=== PATIENT | female | born 1980 | race African-American/Black ===

== ENCOUNTER 2017-01-06 06:11 | Observation (INO) | payer SELFPAY ==
[2017-01-06 06:58] LABS: #Lymphocytes 1.2 thou/uL (1.20-3.40); #Monocytes 0.8 thou/uL (0.11-0.59); #Neutrophils 13.1 thou/uL (1.40-6.50); %Basophils 0.2 % (0.0-1.0); %Monocytes 5.4 % (0.0-10.0); Mean Platelet Volume 6.2 fL (7.4-10.4); Red Blood Cell (RBC) Count 4.73 mill/uL (4.20-5.40); White Blood Cell (WBC) Count 15.2 thou/uL (4.8-10.8)
[2017-01-06] MEDS ORDERED: Lorazepam 2 MG/ML VIAL ONE (06:59)
[2017-01-06 07:17] LABS: ALT (SGPT) 73 U/L (8-55); AST (SGOT) 162 U/L (5-34); Alkaline Phosphatase 105 U/L (40-150); Anion Gap 25 mmol/L (10-20); BUN (Urea Nitrogen) 11 mg/dL (7.0-18.7); Bilirubin, Total 1.4 mg/dL (0.2-1.2); Calc. Creatinine Clearance 0 mL/min (70-130); Calcium 9.7 mg/dL (7.8-10.44); Carbon Dioxide 24 mmol/L (22-29); Chloride 97 mmol/L (98-107); Estimated GFR-MDRD 69; Globulin 3.6 g/dL (2.4-3.5); Protein, Total 7.9 g/dL (6.0-8.3)
[2017-01-06 07:24] LABS: Magnesium 1.4 mg/dL (1.6-2.6)
[2017-01-06 07:27] LABS: Phosphorus 1.3 mg/dL (2.3-4.7)
[2017-01-06] MEDS ORDERED: Zolpidem Tartrate 5 MG TAB PO PRN (10:24)
[2017-01-06] MEDS ORDERED: Sodium Chloride 0.65% Nasal 44 ML BOT EA NARE PRN (10:24)
[2017-01-06] MEDS ORDERED: Acetaminophen 325 MG TAB PO PRN (10:24)
[2017-01-06] MEDS ORDERED: HYDROcodone/Acetaminophen 5/325 mg Tablet PO PRN (10:24)
[2017-01-06] MEDS ORDERED: Senokot 8.6 MG TAB PO PRN (10:24)
[2017-01-06] MEDS ORDERED: Diabetic Tussin 200 MG/10 ML UDCUP PO PRN (10:24)
[2017-01-06] MEDS ORDERED: Ondansetron ODT 4 MG TAB PO PRN (10:24)
[2017-01-06] MEDS ORDERED: Eucerin (Mineral Oil/Petrolatum,White) 30 gm Jar TOP PRN (10:24)
[2017-01-06] MEDS ORDERED: Milk Of Magnesia 30 ML UDCUP PO PRN (10:24)
[2017-01-06] MEDS ORDERED: Loperamide HCl 2 MG CAP PO PRN (10:24)
[2017-01-06] MEDS ORDERED: Promethazine HCl 25 MG/ML VIAL IM/IV PRN (10:27)
[2017-01-06] MEDS ORDERED: POTASSIUM PHOSPHATE IVPB SCH (10:30)
[2017-01-06] MEDS ORDERED: ADMIXTURE FEE IVPB SCH ×2 (10:30)
[2017-01-06] MEDS ORDERED: SODIUM CHLORIDE IVPB SCH ×2 (10:30)
[2017-01-06] MEDS ORDERED: MAGNESIUM SULFATE IVPB SCH (10:30)
[2017-01-06] MEDS: Multivitamins, Adult 10 ML, Thiamine HCl 100 MG, Folic Acid 1 MG in Dextrose 5 %-0.45 %... IV SCH ×8 (10:53→10:57)
[2017-01-06] MEDS: THIAMINE HCL IV SCH ×10 (10:55→11:17)
[2017-01-06] MEDS: FOLIC ACID IV SCH ×10 (10:55→11:17)
[2017-01-06] MEDS: [UNRECOGNIZED DRUG - OTHER] IV SCH ×10 (10:55→11:17)
[2017-01-06] MEDS: MULTIVITAMINS IV SCH ×10 (10:55→11:17)
[2017-01-06] MEDS: Ondansetron HCl/PF 4 MG/2 ML Vial IVP PRN ×2 (10:58→20:26)
[2017-01-06 11:05] VITALS: BMI 32.3
--- NOTE | 2017-01-06 14:06 | ULT ---
RIGHT UPPER QUADRANT ABDOMINAL ULTRASOUND: HISTORY: Elevated LFTs. COMPARISON: None. TECHNIQUE: Multiplanar pickard-scale and color Doppler images were obtained in a right upper quadrant abdominal ul trasound. FINDINGS: The liver demonstrates increased echogenicity without focal lesions or intrahepatic ductal dilatatio n. The gallbladder is normal without stones, sludge, gallbladder wall thickening, or pericholecysti c fluid. The common bile duct is normal, measuring 4 mm. The visualized portions of the pancreas are unremarkable. The right kidney is normal in echogenicit y without hydronephrosis or calculus and measures 12.8 cm in length. IMPRESSION: Fatty liver. POS: DONIS
[2017-01-06 14:40] LABS: Bilirubin Moderate (Negative); Blood, Urine Large (Negative); Glucose, Urine (Dipstick) Negative (Negative); Ketone, Urine 40 mg/dL (Negative); Protein, Urine (Dipstick) 100 mg/dL (Neg-Trace)
[2017-01-06 14:50] LABS: Bacteria/HPF 2+ HPF (None Seen); Nitrite Unable to Interpret (Negative)
--- NOTE | 2017-01-06 15:14 | HP ---
PRIMARY CARE PHYSICIAN: [facility]. REASON FOR ADMISSION: Alcohol withdrawal. HISTORY OF PRESENT ILLNESS: A 36-year-old female who has been binge drinking alcohol. She drank al cohol heavily in the last week. Her last drink was on Friday. She was drinking vodka. Since then, she was having nausea, vomiting, and vague epigastric discomfort. She denies any hematemesis. She denies any melena. She denies any hematochezia. She started feeling jittery and she was anxious. She was also started feeling withdrawing and that is why she decided to come to the emergency room to get help. In the emergency room, patient appeared to be in withdrawing from alcohol. She was given lorazepam and after that she was calmed down. She was also having nausea and vomiting and she was not able to keep anything down and that is why we decided to keep this patient in the hospital for hydration an d for treatment of alcohol withdrawal syndrome. Patient denies any previous alcohol withdrawal reaction. She denies any alcohol withdrawal seizure. She denies any fever or chills. She denies any UTI symptoms. She denies any constipation, diarrh ea. She denies any headache or diaphoresis. She denies any fever or chills. PAST MEDICAL HISTORY: Irritable bowel syndrome, alcohol abuse. PAST SURGICAL HISTORY: Reviewed and negative. PAST PSYCHIATRIC HISTORY: Reviewed and negative. SOCIAL HISTORY: Patient drinks in binge habit. She drinks beer and liquor and vodka whenever she d rinks. She denies any smoking, but she does intermittently abuses marijuana. She denies any other illicit drug abuse. FAMILY HISTORY: No strong family history of premature coronary artery disease, stroke or cancer. REVIEW OF SYSTEMS: The following complete review of systems was negative, unless otherwise mentione d in the HPI or below: Constitutional: Weight loss or gain, ability to conduct usual activities. Skin: Rash, itching. Eyes: Double vision, pain. ENT/Mouth: Nose bleeding, neck stiffness, pain, tenderness. Cardiovascular: Palpitations, dyspnea on exertion, orthopnea. Respiratory: Shortness of breath, wheezing, cough, hemoptysis, fever or night sweats. Gastrointestinal: Poor appetite, abdominal pain, heartburn, nausea, vomiting, constipation, or diar radha. Genitourinary: Urgency, frequency, dysuria, nocturia. Musculoskeletal: Pain, swelling. Neurologic/Psychiatric: Anxiety, depression. Allergy/Immunologic: Skin rash, bleeding tendency. Please see my HPI for pertinent positives and negatives. All other review of systems reviewed and n egative except as mentioned in the HPI. ALLERGIES: No known drug allergies. CURRENT HOME MEDICATIONS: The patient is not taking any prescribed or non-prescribed medication. EMERGENCY ROOM COURSE: Patient was given banana bag, IV fluid, Ativan 1 mg. PHYSICAL EXAMINATION: VITAL SIGNS: On arrival, blood pressure 160/118, pulse 98, respiratory rate 18, temperature 98.9, s aturation 94% on room air, weight 104.3 kilograms. GENERAL: Patient is currently alert, awake, appears anxious, no obvious acute distress. HEAD: Normocephalic, atraumatic. EYES: Pupils round, reactive to light. Extraocular muscles intact. ENT: Dry appearing mucous membranes. No oral lesions. No pharyngeal erythema, no exudate. NECK: Supple. Range of motion is normal. No meningeal signs of irritation. LUNGS: Clear to auscultation without any rhonchi or rales. CARDIAC: S1, S2 regular without any murmur. ABDOMEN: Soft, bowel sounds present, no Cabral's sign, no guarding, no rigidity, no pain on deep pa lpation in epigastric area. No suprapubic tenderness, no distention. BACK: Unremarkable, no CVA tenderness. EXTREMITIES: Upper extremity: Passive movement of all joints are normal. Lower extremity: No myriam ma. Good peripheral pulsation. SKIN: No skin rash. HEMATOLOGICAL: No lymphadenopathy. PSYCHIATRIC: Anxious affect. NEUROLOGIC: The patient does have tremors. SIGNIFICANT LABORATORY DATA: CBC: WBC 15.2, hemoglobin 15.2, platelet 338, MCV 99.3. BMP: Sodium 142, potassium 3.6, chloride 97, carbon dioxide 24, BUN 11, creatinine 1.09, anion gap 25, glucose 177, calcium 9.7. Phosphorus 1.3, magnesium 1.4. LFT: AST 162, ALT 73, albumin 4.3. Alcohol leve l less than 10. ASSESSMENT AND PLAN: 1. Acute alcohol withdrawal syndrome. This patient has tremor, anxiety, hypertension. This patien t's last drink was on Friday. She has binge drinking episodes. She is currently withdrawing. Her withdrawal reaction is mild. We will continue with Ativan 1 mg p.o. q.4 hourly p.r.n. basis. We wi ll keep as observation status. 2. Alcohol abuse and alcoholism. I provided the patient counseling to avoid alcohol products. Karen blanco in hospital, we will continue with banana bag. 3. Hypophosphatemia and hypomagnesemia with hypokalemia. We will replace potassium phosphate and m agnesium sulfate while in hospital. We will repeat the electrolytes again tomorrow. 4. Abnormal liver function tests. We will do ultrasound gallbladder, most likely that is related w ith chronic alcohol abuse. 5. Obesity with BMI 32, weight loss education given. Healthy lifestyle measures discussed with the patient. 6. Macrocytosis. Upon discharge, we will consider giving her folic acid, thiamine, and vitamin B12 . 7. Deep venous thrombosis prophylaxis not needed, because we are expecting discharge in 24 hours. 8. Gastrointestinal prophylaxis, Pepcid 20 mg IV b.i.d. 9. Nausea, vomiting. The patient will be given symptomatic treatment with Zofran, Pepcid, and Phen ergan. 10. Dehydration. Patient will be given IV fluids with banana bag. Code status: The patient is full code. She does not have any surrogate decision maker. Disposition and plan within 24 hours. Plan of care discussed with the patient in detail.
[2017-01-06 15:16] LABS: Hyaline Casts/LPF 0-3 HYALINE CAST LPF (0-3 Hyaline); Renal Epithelial None Seen HPF (0-3); Transitional Epithelial NONE SEEN HPF (0-3); Yeast-All Forms None Seen HPF (None Seen)
[2017-01-06] MEDS: Mag-Al 1200 mg/1200 mg/30 ML UDCUP PO PRN (16:48)
[2017-01-06] MEDS: Lorazepam 1 MG TAB PO PRN (16:49)
[2017-01-06] MEDS: Famotidine/PF 20 mg/2ml Vial SLOW IVP SCH (20:28)
[2017-01-07] MEDS: Lorazepam 1 MG TAB PO PRN (02:45)
[2017-01-07 03:44] VITALS: TEMP 99.3
[2017-01-07 04:34] LABS: #Basophils 0.1 thou/uL (0.0-0.2); #Eosinphils 0.1 thou/uL (0.0-0.7); #Lymphocytes 1.9 thou/uL (1.20-3.40); #Monocytes 0.3 thou/uL (0.11-0.59); #Neutrophils 5.6 thou/uL (1.40-6.50); %Basophils 1.4 % (0.0-1.0); %Eosinophils 0.7 % (0.0-10.0); %Lymphocytes 23.6 % (21.0-51.0); %Monocytes 4.3 % (0.0-10.0); Hematocrit 37.7 % (36.0-47.0); Mean Platelet Volume 6.4 fL (7.4-10.4); Red Blood Cell (RBC) Count 3.73 mill/uL (4.20-5.40)
[2017-01-07 05:17] LABS: ALT (SGPT) 60 U/L (8-55); AST (SGOT) 191 U/L (5-34); Alkaline Phosphatase 74 U/L (40-150); Anion Gap 12 mmol/L (10-20); BUN (Urea Nitrogen) 6 mg/dL (7.0-18.7); Calc. Creatinine Clearance 167 mL/min (70-130); Calcium 7.9 mg/dL (7.8-10.44); Carbon Dioxide 26 mmol/L (22-29); Chloride 101 mmol/L (98-107); Estimated GFR-MDRD Greater than 90; Globulin 2.5 g/dL (2.4-3.5); Magnesium 2.3 mg/dL (1.6-2.6); Phosphorus 2.9 mg/dL (2.3-4.7); Protein, Total 5.7 g/dL (6.0-8.3)
[2017-01-07] MEDS ORDERED: Potassium Chloride 20 MEQ TAB PO SCH (08:00)
[2017-01-07 08:02] VITALS: BP 139/94
[2017-01-07] MEDS: Ondansetron HCl/PF 4 MG/2 ML Vial IVP PRN (08:12)
[2017-01-07] MEDS: Mag-Al 1200 mg/1200 mg/30 ML UDCUP PO PRN (08:12)
[2017-01-07] MEDS: Famotidine/PF 20 mg/2ml Vial SLOW IVP SCH (09:04)
--- NOTE | 2017-01-07 09:36 | DIS ---
DATE OF ADMISSION: 01/06/2017 DATE OF DISCHARGE: 01/07/2017 PRIMARY CARE PHYSICIAN: [facility] call admission. DISCHARGE DISPOSITION: Home. PRIMARY DISCHARGE DIAGNOSES: 1. Mild alcohol withdrawal syndrome, corrected. 2. Abnormal liver function tests due to alcohol abuse. 3. Fatty liver. 4. Macrocytosis due to alcohol abuse. 5. Nausea and vomiting, resolved. 6. Dehydration, corrected. 7. Abnormal electrolytes with hypophosphatemia, hypomagnesemia and hypokalemia, corrected. 8. Asymptomatic urinary tract infection. SECONDARY DISCHARGE DIAGNOSES: 1. Cannabis abuse. 2. Obesity. 3. Alcohol abuse. PRIMARY PROCEDURE/OPERATION: None. RADIOLOGICAL INVESTIGATION: Ultrasound of gallbladder showed fatty liver. SIGNIFICANT LABORATORY DATA: Hemoglobin 12.6, MCV 101, creatinine 0.78, potassium 3.2, phosphorus 2 .9, magnesium 2.3, AST 191, ALT 60. Urinalysis suggestive of UTI. Alcohol level less than 10. DISCHARGE MEDICATIONS: Cipro 500 mg p.o. b.i.d., folic acid 1 mg p.o. daily, vitamin B12 1000 mcg p .o. daily, Pepcid 20 mg p.o. b.i.d., multivitamin 1 tablet p.o. daily, Zofran 4 mg p.o. q.6 hours p. r.n., thiamine 100 mg p.o. daily. CONTRAINDICATIONS: None. CODE STATUS: FULL CODE. INPATIENT CONSULTANTS: None. ALLERGIES: No known drug allergy. DISCHARGE PLAN: Post hospital, the patient will follow up with primary care physician. HOSPITAL COURSE: A 36-year-old female who has alcoholism history with binge drinking alcohol episod e who had last drink on last Friday and subsequently she was feeling withdrawal reaction and that is why she came to emergency room. She was also having nausea, vomiting, and vague abdominal discomfo rt. We did an abdominal ultrasound that showed fatty liver. The patient also had abnormal electrol ytes with hypophosphatemia, hypomagnesemia and hypokalemia that was replaced while in hospital. She had abnormal LFTs that was related with her alcohol abuse. On discharge, we provided above-mention ed medications. Her urinalysis was suspicious for UTI, though she did not have any UTI symptoms. T hen considering asymptomatic UTI, we prescribed Cipro upon discharge for 5 more days. All new medic ation prescription given to her. Counseling is given to avoid alcohol products. PHYSICAL EXAMINATION: The patient is seen and examined at bedside today. VITAL SIGNS: Currently, temperature 98.3, pulse 78, respiratory rate 18, saturation 96%, blood pres sure 133/83. Weight 232 pounds. GENERAL: The patient is currently alert, awake, no acute distress. HEAD: Normocephalic, atraumatic. LUNGS: Clear. CARDIAC: S1, S2 regular without any murmur. ABDOMEN: Soft and benign. EXTREMITIES: No edema. NEUROLOGIC: Nonfocal examination. Overall, patient is medically stable for discharge today.
== END 2017-01-07 10:10 | disposition home or self-care (01) ==
LOC: ERS 06:11 → 2SW 09:10
PROVIDERS: ADMIT Internal Medicine; ATTEND Internal Medicine
DX: F10.239 Alcohol dependence with withdrawal, unspecified (principal); R94.5 Abnormal results of liver function studies; K76.0 Fatty (change of) liver, not elsewhere classified; D75.89 Other specified diseases of blood and blood-forming organs; E83.39 Other disorders of phosphorus metabolism; E83.42 Hypomagnesemia; E87.6 Hypokalemia; E86.0 Dehydration; R11.2 Nausea with vomiting, unspecified; N39.0 Urinary tract infection, site not specified; F12.10 Cannabis abuse, uncomplicated; E66.9 Obesity, unspecified; K58.9 Irritable bowel syndrome, unspecified; Z68.32 Body mass index [BMI] 32.0-32.9, adult; Z87.891 Personal history of nicotine dependence
CPT/HCPCS: 36415; 76705; 80053; 80307; 81001; 83735; 84100; 84703; 85025; 96361; 96365; 96366; 96367; 96375; 96376; A4216; G0378; J2060; J2405; J3411; J3475; J7042; J7050; S0028